=== PATIENT | female | born 1960 | race Hispanic/Latino ===

== ENCOUNTER 2017-06-27 20:33 | Observation (INO) | payer MEDICARE ==
[~2017-06-27] VITALS: Ht 160 cm; Wt 86.3 kg
[2017-06-27 21:25] LABS: BASOPHILS % (AUTO) 0.7 % (0.0-5.0); EOSINOPHILS % (AUTO) 0.8 % (0.0-8.0); HEMATOCRIT 35.2 % (36-48); LYMPHOCYTES % (AUTO) 36.2 % (21.0-51.0); MEAN CORPUSCULAR HEMOGLOBIN 32.1 pg (27.0-33.0); MEAN CORPUSCULAR HGB CONC 33.9 g/dL (32.0-36.0); MEAN CORPUSCULAR VOLUME 94.8 fL (79-99); MONOCYTES % (AUTO) 9.8 % (3.0-13.0); NEUTROPHILS % (AUTO) 52.5 % (40.0-77.0); PLATELET COUNT (AUTO) 193 K/uL (130-400); RED BLOOD CELL COUNT(AUTO) 3.72 MIL/uL (4.00-5.50); RED CELL DISTRIBUTION WIDTH 16.5 % (11.0-15.5); WHITE BLOOD COUNT (AUTO) 6.5 K/uL (4.8-10.8)
[2017-06-27 21:30] LABS: CREATININE 5.7 mg/dL (0.5-1.5); POTASSIUM 3.5 mmol/L (3.5-5.1)
[2017-06-27 21:31] LABS: INR 0.92 (0.85-1.15); PARTIAL THROMBOPLASTIN TIME 27.8 SEC (26.3-35.5); PROTHROMBIN TIME 9.7 SEC (9.6-11.6)
[2017-06-27 21:37] LABS: ALBUMIN 3.3 g/dL (3.5-5.0); BILIRUBIN,TOTAL 0.2 mg/dL (0.2-1.0); TOTAL PROTEIN, SERUM 8.1 g/dL (6.0-8.3)
[2017-06-28] VITALS (7 sets, daily range): BP systolic 120–164; BP diastolic 65–78
[2017-06-28] MEDS ORDERED: APIX5TAB PO (02:23)
[2017-06-28] MEDS ORDERED: SEVE800T7 PO (02:23)
[2017-06-28] MEDS ORDERED: LINA145C PO (02:23)
[2017-06-28] MEDS ORDERED: FOLI1TAB61 PO (02:23)
[2017-06-28] MEDS ORDERED: GABA300S PO (02:23)
[2017-06-28] MEDS ORDERED: FOLI1TAB15 PO (02:23)
[2017-06-28] MEDS ORDERED: INSU100V3 IJ (02:23)
[2017-06-28] MEDS ORDERED: ATOR40TA69 PO (02:23)
[2017-06-28 04:17] LABS: HEMATOCRIT 33.8 % (36-48); MEAN CORPUSCULAR HGB CONC 34.5 g/dL (32.0-36.0); MEAN CORPUSCULAR VOLUME 95.7 fL (79-99); NUCLEATED RED BLOOD CELLS 0.1 % (0.0-0.19); PLATELET COUNT (AUTO) 175 K/uL (130-400); RED BLOOD CELL COUNT(AUTO) 3.53 MIL/uL (4.00-5.50); RED CELL DISTRIBUTION WIDTH 16.4 % (11.0-15.5); WHITE BLOOD COUNT (AUTO) 5.2 K/uL (4.8-10.8)
[2017-06-28 04:31] LABS: HEMOGLOBIN A1C 6.9 % (4.0-6.0)
[2017-06-28 04:49] LABS: CARBON DIOXIDE 28 mmol/L (21-32); CHLORIDE 99 mmol/L (101-111); CHOLESTEROL 125 mg/dL (<200); CREATINE KINASE MB 0.5 ng/mL (0.5-3.6); CREATINE KINASE, TOTAL 29 U/L (21-232); CREATININE 6.2 mg/dL (0.5-1.5); GLOMERULAR FILTR. RATE CALC 7 mL/min (>60); GLUCOSE,RANDOM 125 mg/dL (70-105); HDL CHOLESTEROL 47 mg/dL (35-85); LDL DIRECT 70 mg/dL (0-99); MYOGLOBIN 194 ng/mL (10-92); POTASSIUM 3.5 mmol/L (3.5-5.1); SODIUM SERUM 136 mmol/L (136-145); TRIGLYCERIDES 83 mg/dL (30-200); TROPONIN I < 0.04 ng/mL (0.00-0.06); UREA NITROGEN, BLOOD 41 mg/dL (7-18)
[2017-06-28 10:22] LABS: CREATINE KINASE MB 0.6 ng/mL (0.5-3.6); CREATINE KINASE, TOTAL 31 U/L (21-232); MYOGLOBIN 195 ng/mL (10-92); TROPONIN I < 0.04 ng/mL (0.00-0.06)
[2017-06-28] MEDS ORDERED: DEXTROSE 50%-WATER 50 ML DISP.SYRIN IV PRN (12:00)
[2017-06-28] MEDS: SODIUM CHLORIDE 0.9% 1000ML 1,000 ML IV SCH (12:00)
[2017-06-28] MEDS ORDERED: ACETAMINOPHEN 325 MG TAB PO PRN (12:00)
[2017-06-28] MEDS ORDERED: HYDRALAZINE HCL 20 MG/ML VIAL IV PRN (12:00)
[2017-06-28] MEDS ORDERED: POTASSIUM CHLORIDE 20MEQ/100ML 100 ML IV PRN (12:00)
[2017-06-28] MEDS ORDERED: POTASSIUM CHLORIDE 20 MEQ ERTAB PO PRN (12:00)
[2017-06-28] MEDS ORDERED: ALPRAZOLAM 0.25 MG TABLET PO PRN (12:00)
[2017-06-28] MEDS ORDERED: LIDOCAINE HCL-MPF 1% 2ML VIAL IJ PRN (12:00)
[2017-06-28] MEDS ORDERED: ONDANSETRON HCL 4 MG/2 ML VIAL IVP PRN (12:00)
[2017-06-28] MEDS ORDERED: GLUCAGON 1MG KIT 1 MG ML IM PRN (12:00)
[2017-06-28] MEDS ORDERED: POTASSIUM CHLORIDE 10% ELIXIR 20 MEQ/15 ML UDCUP PO PRN (12:00)
[2017-06-28] MEDS: ASPIRIN 81 MG EC TAB PO SCH (12:08)
[2017-06-28] MEDS ORDERED: LABETALOL HCL 5 MG/ML 20ML VIAL IV PRN (12:15)
[2017-06-28] MEDS: HEPARIN SODIUM 5000UNIT/ML 1ML VIAL SQ SCH ×2 (14:00→20:29)
[2017-06-28] MEDS: INSULIN R PO SSI SQ SCH ×2 (16:30→21:00)
[2017-06-28] MEDS: FAMOTIDINE 20MG TAB 20 MG TAB PO SCH (20:30)
[2017-06-28] MEDS ORDERED: ATORVASTATIN CALCIUM 10 MG TABLET PO SCH (21:00)
[2017-06-28] MEDS ORDERED: ATORVASTATIN CALCIUM 40 MG TABLET PO SCH (21:00)
[2017-06-28] MEDS ORDERED: GABAPENTIN 300 MG CAPSULE PO SCH (21:00)
[2017-06-28] MEDS: INSULIN HUMULIN R 100 UNIT/ML 3ML IJ SCH (21:09)
[2017-06-29 03:41] VITALS: BP 141/75
[2017-06-29] MEDS: INSULIN HUMULIN R 100 UNIT/ML 3ML IJ SCH (06:16)
[2017-06-29] MEDS: INSULIN R PO SSI SQ SCH (06:16)
[2017-06-29] MEDS: SODIUM CHLORIDE 0.9% 1000ML 1,000 ML IV SCH (06:17)
[2017-06-29 07:20] VITALS: BP 182/86
[2017-06-29] MEDS ORDERED: SEVELAMER HCL 800 MG TABLET PO SCH (08:00)
[2017-06-29] MEDS: ASPIRIN 81 MG EC TAB PO SCH (08:46)
[2017-06-29] MEDS: FAMOTIDINE 20MG TAB 20 MG TAB PO SCH (08:47)
[2017-06-29] MEDS ORDERED: CLOPIDOGREL BISULFATE 75 MG TAB PO SCH (09:00)
[2017-06-29] MEDS ORDERED: APIXABAN 5 MG TABLET PO SCH (09:00)
[2017-06-29] MEDS ORDERED: FOLIC ACID/VITAMIN B COMP W-C 1 MG CAPSULE PO SCH (09:00)
[2017-06-29] MEDS: HEPARIN SODIUM 5000UNIT/ML 1ML VIAL SQ SCH (09:00)
[2017-06-29] MEDS ORDERED: FOLIC ACID 1 MG TABLET PO SCH (09:00)
[2017-06-29] MEDS ORDERED: Linaclotide (Linzess) 145 MCG PO SCH (09:00)
== END 2017-06-29 12:18 | disposition home or self-care (01) ==
LOC: EDH 20:33 → EDHIP 22:56 → 2AH 06-28 02:00
PROVIDERS: ADMIT Internal Medicine Nephrology; ATTEND Internal Medicine Nephrology
DX: G45.9 Transient cerebral ischemic attack, unspecified (principal); I12.0 Hypertensive chronic kidney disease with stage 5 chronic kidney disease or end stage renal disease; E11.22 Type 2 diabetes mellitus with diabetic chronic kidney disease; E11.40 Type 2 diabetes mellitus with diabetic neuropathy, unspecified; D63.8 Anemia in other chronic diseases classified elsewhere; N18.6 End stage renal disease; E66.9 Obesity, unspecified; E78.5 Hyperlipidemia, unspecified; H54.8 Legal blindness, as defined in USA; F41.9 Anxiety disorder, unspecified; Z82.49 Family history of ischemic heart disease and other diseases of the circulatory system; Z83.3 Family history of diabetes mellitus; Z96.642 Presence of left artificial hip joint; Z99.2 Dependence on renal dialysis; Z88.5 Allergy status to narcotic agent; Z88.0 Allergy status to penicillin
CPT/HCPCS: 36415 ×2; 70450; 70544; 70547; 70551; 71045; 80048; 80053; 80061; 82550 ×2; 82553 ×2; 82948 ×4; 83036; 83874 ×2; 84443; 84484 ×3; 85025; 85027; 85610; 85730; 93005 ×2; 93306 ×2; 96360; 96361 ×2; 99285; A4600; G0378 ×37; J1644 ×2; J1815; J7030

== ENCOUNTER 2017-12-20 21:17 | Emergency (ER) | payer MEDICARE ==
[~2017-12-20 21:17] MED LIST: APIX5TAB PO; ATOR40TA69 PO; FOLI1TAB15 PO; FOLI1TAB61 PO; GABA300S PO; INSU100V3 IJ; LINA145C PO; SEVE800T7 PO
[2017-12-20 21:53] LABS: EOSINOPHILS % (AUTO) 0.9 % (0.0-8.0); HEMATOCRIT 33.6 % (36-48); LYMPHOCYTES % (AUTO) 25.1 % (21.0-51.0); MEAN CORPUSCULAR HEMOGLOBIN 32.7 pg (27.0-33.0); MEAN CORPUSCULAR HGB CONC 32.9 g/dL (32.0-36.0); MEAN CORPUSCULAR VOLUME 99.7 fL (79-99); NUCLEATED RED BLOOD CELLS 0.1 % (0.0-0.19); PLATELET COUNT (AUTO) 216 K/uL (130-400); RED BLOOD CELL COUNT(AUTO) 3.37 MIL/uL (4.00-5.50); RED CELL DISTRIBUTION WIDTH 16.2 % (11.0-15.5); WHITE BLOOD COUNT (AUTO) 8.9 K/uL (4.8-10.8)
[2017-12-20 22:02] LABS: INR 0.93 (0.85-1.15); PARTIAL THROMBOPLASTIN TIME 28.4 SEC (26.3-35.5); PROTHROMBIN TIME 9.8 SEC (9.6-11.6)
[2017-12-20 22:07] LABS: ALBUMIN 3.4 g/dL (3.5-5.0); BILIRUBIN,TOTAL 0.3 mg/dL (0.2-1.0); POTASSIUM 3.7 mmol/L (3.5-5.1); TOTAL PROTEIN, SERUM 8.7 g/dL (6.0-8.3)
[2017-12-20 22:09] LABS: CREATININE 9.3 mg/dL (0.5-1.5)
[2017-12-20 22:15] LABS: CREATINE KINASE, TOTAL 43 U/L (21-232); MYOGLOBIN 206 ng/mL (10-92); TROPONIN I < 0.04 ng/mL (0.00-0.06)
== END 2017-12-20 22:56 | disposition home or self-care (01) ==
LOC: EDH 21:17
DX: T82.41XA Breakdown (mechanical) of vascular dialysis catheter, initial encounter (principal); I12.0 Hypertensive chronic kidney disease with stage 5 chronic kidney disease or end stage renal disease; E11.22 Type 2 diabetes mellitus with diabetic chronic kidney disease; N18.6 End stage renal disease; H54.7 Unspecified visual loss; Z88.8 Allergy status to other drugs, medicaments and biological substances; Z88.0 Allergy status to penicillin; Z99.2 Dependence on renal dialysis
CPT/HCPCS: 36415; 71045; 80053; 82550; 83874; 84484; 85025; 85610; 85730; 93005; 93990

== ENCOUNTER 2018-08-08 22:21 | Emergency (ER) | payer MEDICARE ==
[2018-08-08] MEDS ORDERED: HYDRALAZINE HCL 20 MG/ML VIAL ONE (23:00)
[2018-08-08 23:35] LABS: BASOPHILS % (AUTO) 0.6 % (0.0-5.0); HEMATOCRIT 32.9 % (36-48); LYMPHOCYTES % (AUTO) 12.5 % (21.0-51.0); MEAN CORPUSCULAR HGB CONC 33.6 g/dL (32.0-36.0); MEAN CORPUSCULAR VOLUME 98.1 fL (79-99); MONOCYTES % (AUTO) 3.6 % (3.0-13.0); NEUTROPHILS % (AUTO) 83.3 % (40.0-77.0); PLATELET COUNT (AUTO) 203 K/uL (130-400); RED BLOOD CELL COUNT(AUTO) 3.36 MIL/uL (4.00-5.50); RED CELL DISTRIBUTION WIDTH 15.1 % (11.0-15.5); WHITE BLOOD COUNT (AUTO) 9.2 K/uL (4.8-10.8)
[2018-08-08 23:42] LABS: CREATININE 7.8 mg/dL (0.5-1.5); POTASSIUM 3.8 mmol/L (3.5-5.1)
[2018-08-08 23:46] LABS: ALBUMIN 3.7 g/dL (3.5-5.0); BILIRUBIN,TOTAL 0.4 mg/dL (0.2-1.0); TOTAL PROTEIN, SERUM 8.6 g/dL (6.0-8.3)
[2018-08-08 23:48] LABS: INR 0.93 (0.85-1.15); PARTIAL THROMBOPLASTIN TIME 23.4 SEC (26.3-35.5); PROTHROMBIN TIME 9.8 SEC (9.6-11.6)
[2018-08-09] MEDS ORDERED: INSULIN HUMULIN R 100 UNIT/ML 3ML ONE (00:48)
[2018-08-09 01:21] LABS: APPEARANCE,URINE Turbid (CLEAR); BILIRUBIN,URINE Negative (NEGATIVE); COLOR,URINE Yellow (YELLOW); GLUCOSE, URINE (UA) Negative (NEGATIVE); KETONES,URINE Negative (NEGATIVE); LEUKOCYTE ESTERASE ,URINE Large (NEGATIVE); NITRATE,URINE Negative (NEGATIVE); OCCULT BLOOD,URINE Moderate (NEGATIVE); PROTEIN,URINE 300 mg/dL (NEGATIVE); UROBILINOGEN,URINE 0.2 mg/dL (0.2-1.0)
[2018-08-09] MEDS ORDERED: LEVOFLOXACIN 500 MG/D5W 100 ML 100 ML ONE (01:39)
[2018-08-09 01:41] LABS: BACTERIA,URINE Many /HPF (None Seen); WBC,URINE TNTC /HPF (0-1)
== END 2018-08-09 04:33 | disposition short-term general hospital (02) ==
LOC: EDH 22:21
DX: I67.4 Hypertensive encephalopathy (principal); R41.82 Altered mental status, unspecified; I12.0 Hypertensive chronic kidney disease with stage 5 chronic kidney disease or end stage renal disease; E11.22 Type 2 diabetes mellitus with diabetic chronic kidney disease; N18.6 End stage renal disease; H54.7 Unspecified visual loss; Z88.0 Allergy status to penicillin; Z79.4 Long term (current) use of insulin; Z88.6 Allergy status to analgesic agent; Z99.2 Dependence on renal dialysis; Z79.899 Other long term (current) drug therapy
CPT/HCPCS: 36415; 70450; 80053; 81001; 82550; 82948 ×2; 83690; 84484; 85025; 85610; 85730; 87077; 87088; 87186; 96365; 96375; 99285; J0360; J1815; J1956

== ENCOUNTER 2018-08-28 22:30 | Emergency (ER) | payer MEDICARE ==
[2018-08-29] MEDS ORDERED: ACETAMINOPHEN EXTRA STRENGTH 500 MG TABLET ONE (00:52)
[2018-08-29] MEDS ORDERED: LIDOCAINE 5% TOPICAL PATCH TP ONE (00:52)
== END 2018-08-29 01:13 | disposition home or self-care (01) ==
LOC: EDH 22:30
DX: S63.591A Other specified sprain of right wrist, initial encounter (principal); S93.692A Other sprain of left foot, initial encounter; S30.0XXA Contusion of lower back and pelvis, initial encounter; I12.0 Hypertensive chronic kidney disease with stage 5 chronic kidney disease or end stage renal disease; E11.22 Type 2 diabetes mellitus with diabetic chronic kidney disease; N18.6 End stage renal disease; Z99.2 Dependence on renal dialysis; Z79.4 Long term (current) use of insulin; Z98.890 Other specified postprocedural states; Z88.0 Allergy status to penicillin; Z88.5 Allergy status to narcotic agent; W01.0XXA Fall on same level from slipping, tripping and stumbling without subsequent striking against object, initial encounter; Y93.89 Activity, other specified; Y92.89 Other specified places as the place of occurrence of the external cause; Y99.8 Other external cause status
CPT/HCPCS: 72100; 73110; 73630

== ENCOUNTER 2020-07-08 13:22 | Emergency (ER) | payer MEDICARE ==
[2020-07-08 14:16] LABS: BASOPHILS % (AUTO) 0.3 % (0.0-5.0); HEMATOCRIT 38.9 % (36-48); LYMPHOCYTES % (AUTO) 13.7 % (21.0-51.0); MEAN CORPUSCULAR HEMOGLOBIN 32.5 pg (27.0-33.0); MEAN CORPUSCULAR HGB CONC 31.9 g/dL (32.0-36.0); MEAN CORPUSCULAR VOLUME 101.8 fL (79-99); MONOCYTES % (AUTO) 6.5 % (3.0-13.0); NEUTROPHILS % (AUTO) 79.2 % (40.0-77.0); PLATELET COUNT (AUTO) 168 K/uL (130-400); RED BLOOD CELL COUNT(AUTO) 3.82 MIL/uL (4.00-5.50); RED CELL DISTRIBUTION WIDTH 14.6 % (11.0-15.5); WHITE BLOOD COUNT (AUTO) 10.3 K/uL (4.8-10.8)
[2020-07-08] MEDS ORDERED: MORPHINE SULFATE 4 MG/1ML SYG ONE (14:17)
[2020-07-08] MEDS ORDERED: ONDANSETRON HCL 4 MG/2 ML VIAL ONE (14:17)
[2020-07-08 14:25] LABS: CREATININE 7.4 mg/dL (0.5-1.5); INR 0.98 (0.85-1.15); POTASSIUM 4.3 mmol/L (3.5-5.1); PROTHROMBIN TIME 10.7 SEC (9.6-11.6)
[2020-07-08 14:27] LABS: PARTIAL THROMBOPLASTIN TIME 24.5 SEC (26.3-35.5)
[2020-07-08 14:35] LABS: ALBUMIN 3.5 g/dL (3.5-5.0); BILIRUBIN,TOTAL 0.3 mg/dL (0.2-1.0); TOTAL PROTEIN, SERUM 8.3 g/dL (6.0-8.3)
== END 2020-07-08 16:52 | disposition home or self-care (01) ==
LOC: EDH 13:22
DX: S42.294A Other nondisplaced fracture of upper end of right humerus, initial encounter for closed fracture (principal); E11.65 Type 2 diabetes mellitus with hyperglycemia; I12.0 Hypertensive chronic kidney disease with stage 5 chronic kidney disease or end stage renal disease; E11.22 Type 2 diabetes mellitus with diabetic chronic kidney disease; N18.6 End stage renal disease; Z99.2 Dependence on renal dialysis; Z88.6 Allergy status to analgesic agent; Z88.0 Allergy status to penicillin; Z72.0 Tobacco use; W06.XXXA Fall from bed, initial encounter; Y93.89 Activity, other specified; Y92.89 Other specified places as the place of occurrence of the external cause; Y99.8 Other external cause status
CPT/HCPCS: 36415; 70450; 71045; 72125; 73030; 73060; 80053; 84484; 85025; 85610; 85730; 93005; 96374; 96375; 99285; J2270; J2405

== ENCOUNTER 2021-02-15 06:36 | Day surgery (SDC) | payer MEDICARE ==
[2021-02-13 11:23] LABS: BASOPHILS % (AUTO) 0.6 % (0.0-5.0); EOSINOPHILS % (AUTO) 2.1 % (0.0-8.0); HEMATOCRIT 34.8 % (36-48); LYMPHOCYTES % (AUTO) 26.7 % (21.0-51.0); MEAN CORPUSCULAR HEMOGLOBIN 34.1 pg (27.0-33.0); MEAN CORPUSCULAR HGB CONC 32.2 g/dL (32.0-36.0); MEAN CORPUSCULAR VOLUME 106.1 fL (79-99); MONOCYTES % (AUTO) 8.5 % (3.0-13.0); NEUTROPHILS % (AUTO) 61.7 % (40.0-77.0); PLATELET COUNT (AUTO) 200 K/uL (130-400); POTASSIUM 4.2 mmol/L (3.5-5.1); RED BLOOD CELL COUNT(AUTO) 3.28 MIL/uL (4.00-5.50); RED CELL DISTRIBUTION WIDTH 13.4 % (11.0-15.5); WHITE BLOOD COUNT (AUTO) 7.7 K/uL (4.8-10.8)
[2021-02-13 11:25] LABS: CREATININE 8.2 mg/dL (0.5-1.5)
[2021-02-13 12:26] LABS: INR 0.98 (0.85-1.15); PROTHROMBIN TIME 10.7 SEC (9.6-11.6)
[2021-02-13 12:27] LABS: PARTIAL THROMBOPLASTIN TIME 28.1 SEC (26.3-35.5)
[2021-02-14 11:16] VITALS: BP 140/73
[~2021-02-15] VITALS: Ht 160 cm; Wt 87.5 kg
[2021-02-15] VITALS (12 sets, daily range): BP systolic 98–146; BP diastolic 54–79
[~2021-02-15 06:36] MED LIST changes: +0.9% NACL 500ML IV.SOLN 500 ML IV SCH; +APIX2.5T PO; -APIX5TAB PO; +ASCO500C18 PO; +CHOL100040 PO; +GABA300C PO; -GABA300S PO; -LINA145C PO; +LINA290C PO; +VITAMIN B12 PO
[2021-02-15] MEDS ORDERED: 0.9%NACL 1000ML 1,000 ML IV ONE (07:46)
[2021-02-15] MEDS ORDERED: IODIXANOL 320 MG/ML 100 ML VIAL ONE (09:22)
[2021-02-15] MEDS ORDERED: MIDAZOLAM HCL 1 MG/ML 2ML VIAL ONE (09:22)
[2021-02-15] MEDS ORDERED: HEPARIN 10,000 UNIT/10ML (1,000 UNIT/ML) VIAL ONE (09:22)
[2021-02-15] MEDS ORDERED: NITROGLYCERIN 50MG VIAL IV ONE (09:22)
[2021-02-15] MEDS ORDERED: LIDOCAINE HCL 400MG/20ML VIAL ONE (09:23)
[2021-02-15] MEDS ORDERED: FENTANYL CITRATE PF 50 MCG/1 ML 2ML VIAL ONE (09:23)
[2021-02-15] MEDS ORDERED: HYDRALAZINE 20MG/ML VIAL ONE (10:14)
[2021-02-15] MEDS ORDERED: DEXTROSE 50%-WATER 50 ML DISP.SYRIN IV PRN (11:30)
[2021-02-15] MEDS ORDERED: GLUCAGON 1MG KIT 1 MG ML IM PRN (11:30)
== END 2021-02-15 17:20 | disposition home or self-care (01) ==
LOC: DAH 06:36
PROVIDERS: ATTEND Student in an Organized Health Care Education/Training Program
DX: I70.213 Atherosclerosis of native arteries of extremities with intermittent claudication, bilateral legs (principal); Z20.822 Contact with and (suspected) exposure to COVID-19; E11.51 Type 2 diabetes mellitus with diabetic peripheral angiopathy without gangrene; I77.9 Disorder of arteries and arterioles, unspecified; E11.22 Type 2 diabetes mellitus with diabetic chronic kidney disease; I12.0 Hypertensive chronic kidney disease with stage 5 chronic kidney disease or end stage renal disease; E78.5 Hyperlipidemia, unspecified; N18.6 End stage renal disease; Z88.0 Allergy status to penicillin; Z88.6 Allergy status to analgesic agent; Z79.82 Long term (current) use of aspirin; Z79.4 Long term (current) use of insulin; Z98.890 Other specified postprocedural states; Z98.891 History of uterine scar from previous surgery; Z82.49 Family history of ischemic heart disease and other diseases of the circulatory system; Z83.3 Family history of diabetes mellitus; Z99.2 Dependence on renal dialysis; Z79.01 Long term (current) use of anticoagulants
CPT/HCPCS: 36200; 36415; 71045; 75716; 80048; 82948; 85025; 85610; 85730; 93005; A4215; A4221; A4222; A4223; A4663; C1760; C1894; J0360; J1644; J2250; J3010; J3490 ×2; J7030; Q9967; 99156; 99157

== ENCOUNTER 2021-07-10 05:58 | Day surgery (SDC) | payer MEDICARE ==
[2021-07-06 15:18] LABS: BASOPHILS % (AUTO) 0.8 % (0.0-5.0); EOSINOPHILS % (AUTO) 0.6 % (0.0-8.0); HEMATOCRIT 40.7 % (36-48); LYMPHOCYTES % (AUTO) 24.6 % (21.0-51.0); MEAN CORPUSCULAR HEMOGLOBIN 33.1 pg (27.0-33.0); MEAN CORPUSCULAR HGB CONC 32.4 g/dL (32.0-36.0); MONOCYTES % (AUTO) 6.4 % (3.0-13.0); NEUTROPHILS % (AUTO) 67.3 % (40.0-77.0); PLATELET COUNT (AUTO) 166 K/uL (130-400); RED BLOOD CELL COUNT(AUTO) 3.99 MIL/uL (4.00-5.50); RED CELL DISTRIBUTION WIDTH 14.6 % (11.0-15.5); WHITE BLOOD COUNT (AUTO) 6.2 K/uL (4.8-10.8)
[2021-07-06 15:26] LABS: CREATININE 4.7 mg/dL (0.5-1.5); POTASSIUM 3.9 mmol/L (3.5-5.1)
[2021-07-06 15:29] LABS: INR 0.96 (0.85-1.15); PROTHROMBIN TIME 10.5 SEC (9.6-11.6)
[2021-07-06 15:30] LABS: PARTIAL THROMBOPLASTIN TIME 26.3 SEC (26.3-35.5)
[2021-07-09 14:31] VITALS: BP 121/84
[2021-07-10] VITALS (21 sets, daily range): BP systolic 121–152; BP diastolic 59–82
[~2021-07-10] VITALS: Ht 160 cm; Wt 87.5 kg
[~2021-07-10 05:58] MED LIST changes: -0.9% NACL 500ML IV.SOLN 500 ML IV SCH; +ACET-66 PO; +NPH,100V11 SQ; +SENN-107 PO; +VITA400C79 PO; +ZINC220T4 PO
[2021-07-10] MEDS ORDERED: 0.9%NACL 1000ML 1,000 ML IV ONE (06:14)
[2021-07-10] MEDS ORDERED: IOHEXOL 350 MG/ML 100ML INFUS..BTL IV ONE (07:12)
[2021-07-10] MEDS ORDERED: HEPARIN 10,000 UNIT/10ML (1,000 UNIT/ML) VIAL ONE (07:12)
[2021-07-10] MEDS ORDERED: IOHEXOL-350 50ML VIAL IV ONE (07:12)
[2021-07-10] MEDS ORDERED: LIDOCAINE HCL 1% 20 ML VIAL ONE (07:12)
[2021-07-10] MEDS ORDERED: MIDAZOLAM HCL 1 MG/ML 2ML VIAL ONE (07:12)
[2021-07-10] MEDS ORDERED: NITROGLYCERIN 50MG VIAL ONE (07:12)
[2021-07-10] MEDS ORDERED: FENTANYL CITRATE PF 50 MCG/1 ML 2ML VIAL ONE (07:13)
[2021-07-10] MEDS ORDERED: GLUCAGON 1MG KIT 1 MG ML IM PRN (08:30)
[2021-07-10] MEDS ORDERED: DEXTROSE 50%-WATER 50 ML DISP.SYRIN IV PRN (08:30)
[2021-07-10] MEDS ORDERED: ATROPINE 1MG SYG IVP ONE (09:00)
[2021-07-10] MEDS ORDERED: TRAMADOL HCL 50 MG TABLET ONE (14:10)
[2021-07-10] MEDS ORDERED: ACETAMINOPHEN 500 MG TABLET ONE (14:15)
[2021-07-10] MEDS ORDERED: TRAMADOL HCL 50 MG TABLET PO ONE (15:00)
[2021-07-10] MEDS ORDERED: ACETAMINOPHEN 500 MG TABLET PO ONE (15:00)
== END 2021-07-10 17:35 | disposition home or self-care (01) ==
LOC: DAH 05:58
PROVIDERS: ATTEND Student in an Organized Health Care Education/Training Program
DX: R07.9 Chest pain, unspecified (principal); I20.8 Other forms of angina pectoris; E11.22 Type 2 diabetes mellitus with diabetic chronic kidney disease; I12.0 Hypertensive chronic kidney disease with stage 5 chronic kidney disease or end stage renal disease; N18.6 End stage renal disease; I77.9 Disorder of arteries and arterioles, unspecified; I51.7 Cardiomegaly; E11.51 Type 2 diabetes mellitus with diabetic peripheral angiopathy without gangrene; Z88.0 Allergy status to penicillin; Z88.5 Allergy status to narcotic agent; Z79.899 Other long term (current) drug therapy
CPT/HCPCS: 36415; 71045; 80048; 82948 ×2; 85025; 85610; 85730; 93005; 93458; A4215; A4216; A4221; A4222; A4223 ×3; A4520; A4554; A4606; A4657; A4663; A6260; A6402; C1894 ×2; J1644; J2250; J3010; J3490; J7030; Q9965; Q9967 ×2; 99156; 99157; J0461

== ENCOUNTER → 2022-03-05 | Outpatient (CLI) | payer MEDICARE | END | disposition home or self-care (01) | LOC: SHCH 08:07 | PROVIDERS: ATTEND Student in an Organized Health Care Education/Training Program | DX: I65.21 Occlusion and stenosis of right carotid artery (principal); I77.9 Disorder of arteries and arterioles, unspecified; I12.9 Hypertensive chronic kidney disease with stage 1 through stage 4 chronic kidney disease, or unspecified chronic kidney disease; E11.22 Type 2 diabetes mellitus with diabetic chronic kidney disease; N18.6 End stage renal disease; E78.5 Hyperlipidemia, unspecified; I73.9 Peripheral vascular disease, unspecified; Z79.899 Other long term (current) drug therapy | CPT/HCPCS: 93880 ==

== ENCOUNTER → 2023-02-05 | Outpatient (CLI) | payer MEDICARE ==
[~2023-02-05] MED LIST changes: -ACET-66 PO; -ASCO500C18 PO; -CHOL100040 PO; +CINA30TA5 PO; +DOCU-116 PO; +FOLI0.8T43 PO; -FOLI1TAB61 PO; +FOLI1TAB85 PO; +GABA-534 PO; -GABA300C PO; -INSU100V3 IJ; -LINA290C PO; +LORA10TA7 PO; -NPH,100V11 SQ; +SIME180C70 PO; -VITA400C79 PO; -VITAMIN B12 PO; -ZINC220T4 PO
[2023-02-05 12:17] LABS: CREATININE 6.9 mg/dL (0.5-1.5); POTASSIUM 4.5 mmol/L (3.5-5.1)
== END | disposition home or self-care (01) ==
LOC: LAB 09:13
PROVIDERS: ATTEND Student in an Organized Health Care Education/Training Program
DX: I12.0 Hypertensive chronic kidney disease with stage 5 chronic kidney disease or end stage renal disease (principal); N18.6 End stage renal disease
CPT/HCPCS: 36415; 80048

== ENCOUNTER → 2023-02-13 | Outpatient (CLI) | payer MEDICARE ==
[~2023-02-13] MED LIST changes: +IOHEXOL-350 75 ML VIAL IV ONE
== END | disposition home or self-care (01) ==
LOC: RAH 08:37
PROVIDERS: ATTEND Student in an Organized Health Care Education/Training Program
DX: R07.9 Chest pain, unspecified (principal)
CPT/HCPCS: 71275; Q9967